=== PATIENT | male | born 1975 ===

== ENCOUNTER 2024-12-25 13:14 | Emergency (ER) | payer OTHER, SELFPAY ==
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
[2024-12-25 13:18] VITALS: BP 149/82; PULSE 76; O2SAT 97
[2024-12-25 13:39] VITALS: BP 118/70; PULSE 76; RESP 16; TEMP 36.8; O2SAT 97; BMI 30.3
[2024-12-25 13:41] VITALS: RESP 16
[2024-12-25] MEDS: Ibuprofen 600 MG TABLET PO (14:41)
[2024-12-25] MEDS: Lidocaine 4 % Patch ADH..PATCH 1 PATCH TRANSDERMA (14:42)
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
[2024-12-25 15:21] VITALS: BP 118/75; PULSE 58; RESP 18; TEMP 36.3; O2SAT 95
[2024-12-25 15:22] VITALS: BP 118/75; PULSE 58; RESP 18; TEMP 36.3; O2SAT 95
== END 2024-12-25 15:22 | disposition home or self-care (01) ==
PROVIDERS: Emergency Provider Emergency Medicine; PCP Internal Medicine
DX: S39.012A Strain of muscle, fascia and tendon of lower back, initial encounter (principal); S16.1XXA Strain of muscle, fascia and tendon at neck level, initial encounter; R51.9 Headache, unspecified; M54.2 Cervicalgia; V43.52XA Car driver injured in collision with other type car in traffic accident, initial encounter; Y93.9 Activity, unspecified; Y92.410 Unspecified street and highway as the place of occurrence of the external cause; Y99.8 Other external cause status
CPT/HCPCS: 70450; 72125; 99284

== ENCOUNTER → 2024-12-25 14:10 | Outpatient (BNV) | payer OTHER, SELFPAY | PROVIDERS: Emergency Provider Emergency Medicine; PCP Internal Medicine; Visit Provider Radiology Diagnostic Radiology | DX: S16.1XXA Strain of muscle, fascia and tendon at neck level, initial encounter (principal); S39.012A Strain of muscle, fascia and tendon of lower back, initial encounter | CPT/HCPCS: 70450; 72125 ==